=== PATIENT | female | born 2000 | race Caucasian/White ===

== ENCOUNTER 2025-04-16 14:28 | Inpatient (IN) | payer OTHER ==
[~2025-04-16] VITALS: Ht 160 cm; Wt 127.0 kg
[2025-04-16 13:50] VITALS: BP 127/63
[2025-04-16] MEDS ORDERED: TERBUTALINE SULFATE 1 MG/ML AMPUL SUBCUTANEO STA (14:35)
[2025-04-16] MEDS ORDERED: RINGERS SOLUTION,LACTATED 1,000 ML IV SCH (14:45)
[2025-04-16] MEDS ORDERED: TERBUTALINE SULFATE 1 MG/ML AMPUL SUBCUTANEO NR (14:45)
[2025-04-16] MEDS ORDERED: BETAMETHASONE ACETATE,SOD PHOS 30 MG/5 ML ML IM NR (14:45)
[2025-04-16 15:29] LABS: URINE APPEARANCE Clear; URINE BILIRRUBIN Negative (NEGATIVE); URINE BLOOD Negative; URINE COLOR Yellow; URINE GLUCOSE Negative (NEGATIVE); URINE KETONE 15 (NEGATIVE); URINE LEUKOCYTE Negative; URINE NITRATE Negative; URINE PROTEIN Negative (NEGATIVE); URINE UROBILINOGEN 0.2 E.U./dl
[2025-04-16 15:31] LABS: BASO % 0.3 % (0.1-1.2); EOS # 0.04 (0.04-0.54); EOS % 0.3 % (0.7-7.0); LYMPH # 1.42 (1.18-3.74); LYMPH % 9.7 % (19.3-53.1); MEAN PLATELET VOLUME 12.40 fl (9.4-12.4); MONO # 0.69 (0.24-0.82); MONO % 4.7 % (4.7-12.5); NEUT # 12.34 (1.56-6.13); NEUT % 84.5 % (34.0-71.1); RED CELL DISTRIBUTION WIDTH 14.2 % (11.6-14.4)
[2025-04-16 15:33] LABS: URINE BACTERIA 76.8 uL (0.0-1933); URINE EPITHELIAL CELLS 18.1 uL (0.0-38.8); URINE WBC 6.1 uL (0.0-23.2)
[2025-04-16 15:35] VITALS: BP 126/73
[2025-04-16 15:47] LABS: URINE CAST 0.29 uL (0.0-1.40); URINE RBC 1.7 uL (0.0-20.8)
[2025-04-16] MEDS ORDERED: AMPICILLIN SODIUM 2,000 MG VIAL IV SCH (18:00)
[2025-04-16 20:05] VITALS: BP 108/66
[2025-04-16] MEDS ORDERED: NIFEDIPINE 20 MG CAPSULE PO STA (22:50)
[2025-04-16] MEDS ORDERED: NIFEDIPINE 10 MG CAPSULE PO PRN (23:00)
[2025-04-16 23:33] VITALS: BP 130/74
[2025-04-17 02:35] VITALS: BP 130/74
[2025-04-17 07:09] VITALS: BP 135/64
[2025-04-17] MEDS ORDERED: NIFEDIPINE 30 MG TAB.SA.OSM PO NR (12:00)
[2025-04-17 12:04] VITALS: BP 119/71
[2025-04-17] MEDS ORDERED: BETAMETHASONE ACETATE,SOD PHOS 30 MG/5 ML ML IM NR (14:45)
[2025-04-17 15:05] VITALS: BP 126/71
[2025-04-17 19:46] VITALS: BP 128/66
[2025-04-17 23:05] VITALS: BP 136/80
[2025-04-18 02:30] VITALS: BP 130/69
[2025-04-18] MEDS ORDERED: ACETAMINOPHEN 500 MG GEL..CAP PO ONE (02:30)
[2025-04-18 07:28] VITALS: BP 119/63
[2025-04-18] MEDS ORDERED: OXYTOCIN 500 ML IV SCH (07:30)
[2025-04-18] MEDS ORDERED: NIFEDIPINE 30 MG TAB.SA.OSM PO SCH (09:00)
[2025-04-18 10:56] VITALS: BP 112/66
[2025-04-18 11:00] VITALS: BP 101/55
[2025-04-18] MEDS ORDERED: ACETAMINOPHEN 500 MG GEL..CAP PO PRN (11:30)
[2025-04-18] MEDS ORDERED: LIDOCAINE HCL 1% 2ML VIAL IJ ONE (11:30)
[2025-04-18] MEDS ORDERED: ERYTHROMYCIN BASE OPHT 1GM EACH TUBE OP ONE (11:30)
[2025-04-18] MEDS ORDERED: CHLORHEXIDINE GLUCONATE 120 ML BOTTLE TOP ONE (11:30)
[2025-04-18] MEDS ORDERED: OXYTOCIN 1,000 ML IV SCH (11:30)
[2025-04-18] MEDS ORDERED: METHYLERGONOVINE MALEATE 0.2 MG/ML AMPUL IM STA (11:34)
[2025-04-18] MEDS ORDERED: CARBOPROST TROMETHAMINE 250 MCG/ML AMPUL IM STA (11:34)
[2025-04-18 12:56] VITALS: BP 117/76
[2025-04-18] MEDS ORDERED: HYDROCORTISONE 2.5% 30 GM TUBE RECTAL SCH (13:00)
[2025-04-18] MEDS ORDERED: BENZOCAINE/MENTHOL 90 ML BOTTLE TOP SCH (13:00)
[2025-04-18 16:23] VITALS: BP 111/68
[2025-04-19 00:28] VITALS: BP 113/67
[2025-04-19 01:46] LABS: BASO % 0.2 % (0.1-1.2); EOS # 0.09 (0.04-0.54); EOS % 0.5 % (0.7-7.0); LYMPH # 2.52 (1.18-3.74); LYMPH % 12.9 % (19.3-53.1); MEAN PLATELET VOLUME 12.20 fl (9.4-12.4); MONO # 1.57 (0.24-0.82); MONO % 8.0 % (4.7-12.5); NEUT # 15.02 (1.56-6.13); NEUT % 76.9 % (34.0-71.1); RED CELL DISTRIBUTION WIDTH 14.2 % (11.6-14.4)
[2025-04-19 08:31] VITALS: BP 133/67
[2025-04-19 16:00] VITALS: BP 102/64
[2025-04-20 00:53] VITALS: BP 97/60
[2025-04-20 08:23] VITALS: BP 119/77
[2025-04-20 16:00] VITALS: BP 123/75
== END 2025-04-20 19:49 | disposition home or self-care (01) | DRG 805 ==
LOC: OBS/DEL 14:28 → LDR 04-17 02:42 → OB/GYN 04-17 02:42
PROVIDERS: Obstetrics & Gynecology; ADMIT Specialist; ATTEND Specialist
PROC: BY4FZZZ Ultrasonography of Third Trimester, Single Fetus (ICD-10-PCS; 2025-04-16)
PROC: 4A1HXCZ Monitoring of Products of Conception, Cardiac Rate, External Approach (ICD-10-PCS; 2025-04-17)
PROC: 10E0XZZ Delivery of Products of Conception, External Approach (ICD-10-PCS; principal; 2025-04-18)
PROC: 0HQ9XZZ Repair Perineum Skin, External Approach (ICD-10-PCS; 2025-04-18)
PROC: 0UQMXZZ Repair Vulva, External Approach (ICD-10-PCS; 2025-04-18)
PROC: 0W8NXZZ Division of Female Perineum, External Approach (ICD-10-PCS; 2025-04-18)
DX: O70.0 First degree perineal laceration during delivery (principal); O60.14X0 Preterm labor third trimester with preterm delivery third trimester, not applicable or unspecified; Z37.0 Single live birth; O71.82 Other specified trauma to perineum and vulva; Z3A.36 36 weeks gestation of pregnancy